=== PATIENT | male | born 1960 | race Caucasian/White ===

== ENCOUNTER 2021-03-24 06:58 | Emergency (ER) | payer OTHER, SELFPAY ==
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
[2021-03-24 07:01] VITALS: BP 154/86; RESP 20; TEMP 36.5; O2SAT 98
[2021-03-24 07:08] VITALS: BP 154/86; RESP 20; TEMP 36.5; O2SAT 98
[2021-03-24 08:19] VITALS: BP 139/82; PULSE 70; RESP 20; O2SAT 98
[2021-03-24] MEDS: KETOROLAC 30 MG/ML VIAL (*BKC) IV PUSH (08:19)
[2021-03-24] MEDS: MORPHINE SULFATE (*CRX) 4 MG/ML INJ IV PUSH (08:19)
[2021-03-24 09:46] VITALS: BP 137/85; PULSE 70; RESP 20; O2SAT 100
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
[2021-03-24 10:08] VITALS: BP 136/85; PULSE 66; RESP 20; O2SAT 98
== END 2021-03-24 10:11 | disposition home or self-care (01) ==
PROVIDERS: Emergency Provider Emergency Medicine; PCP Family Medicine
DX: S06.0X0A Concussion without loss of consciousness, initial encounter (principal); S16.1XXA Strain of muscle, fascia and tendon at neck level, initial encounter; Z87.442 Personal history of urinary calculi; G47.33 Obstructive sleep apnea (adult) (pediatric); Z87.891 Personal history of nicotine dependence; V53.5XXA Driver of pick-up truck or van injured in collision with car, pick-up truck or van in traffic accident, initial encounter
CPT/HCPCS: 70450; 72125; 96374; 96375; 99284; J1885; J2270

== ENCOUNTER 2022-03-30 01:14 | Day surgery (SDC) | payer OTHER, SELFPAY ==
[2022-03-15 10:50] VITALS: BMI 30.2
--- NOTE | 2022-03-29 13:24 | WPDANESEPPF ---
Anes - Initial Pre Proc Eval Procedure: Operation Date: 03/30/22 07:30 Proposed Procedures p Screening Colonoscopy - Nelson Hardin MD <Nate Glynn DO - Last Filed: 03/29/22 13:25> Date/Time: 03/29/22 13:24 <Nate Glynn DO - Last Filed: 03/29/22 13:25> Surgeon: Nelson Hardin MD <Nate Glynn DO - Last Filed: 03/29/22 13:25> Pre Op Diagnosis: neoplasm screening <Nate Glynn DO - Last Filed: 03/29/22 13:25> Patient Data Age: 62 Gender: M Height: 1.75 m Weight: 93 kg <Nate Glynn DO - Last Filed: 03/29/22 13:25> Allergies Allergy/AdvReac Type Severity Reaction Status Date / Time No Known Allergies Allergy Verified 03/30/22 06:22 <Nate Glynn DO - Last Filed: 03/29/22 13:25> Home Medications Medication Instructions Recorded Confirmed Type lancets 30 gauge (OneTouch Delica #100 ea 12/13/21 03/30/22 Rx Lancets) blood sugar diagnostic (FreeStyle #100 ea 12/14/21 03/30/22 Rx Lite Strips) blood-glucose meter (FreeStyle #1 ea 12/14/21 03/30/22 Rx Lite Meter kit) metformin 500 mg tablet,extended 500 mg PO DAILY #90 tabs 02/14/22 03/30/22 Rx release 24 hr atorvastatin 40 mg tablet 40 mg PO QHS #90 tabs 02/15/22 03/30/22 Rx <Nate Glynn DO - Last Filed: 03/29/22 13:25> Patient hx anesthesia problems: none <Opal Bustamante CRNA - Last Filed: 03/30/22 06:42> Family hx anesthesia problems: none <Opal Bustamante CRNA - Last Filed: 03/30/22 06:42> Results Review: All pre-operative results and documents have been reviewed as part of the pre-operative evaluation. <Nate Glynn DO - Last Filed: 03/29/22 13:25> [facility] Past Medical History Medical History: Medical History (Updated 03/29/22 @ 15:09 by Nelson Hardin MD) Clostridioides difficile diarrhea (~12/2021) Diabetes mellitus Dyslipidemia Environmental allergies Kidney stone on right side 01/04/17 BRENDON (obstructive sleep apnea) Radius fracture Right, 1997 <Nate Glynn DO - Last Filed: 03/29/22 13:25> Surgical History Surgical History: Surgical History History of lithotripsy 11/2015 - left renal stones History of open reduction and internal fixation (ORIF) procedure (~1997) 1997 Right distal radius fracture History of tonsillectomy (~1964) <Nate Glynn DO - Last Filed: 03/29/22 13:25> Family History Family History: Family History Sibling Family history of lung cancer Father Hypertension Cancer Other Family history of throat cancer <Nate Glynn DO - Last Filed: 03/29/22 13:25> Social History Social History: Social History Smoking packs per day: 1 Smoking cigarettes per day: 20.0 Years smoked: 6 Smoking pack-years: 6.00 Smoking status: Former smoker Tobacco type: cigarettes Second hand tobacco smoke exposure: No Smoking end date: 09/16/83 Alcohol intake: current Drinks per week: 2 Alcohol use details: 2 beers consumed occasionally Substance use: never Substance use type: does not use Living arrangements: with family Spiritual care concerns: No <Nate Glynn DO - Last Filed: 03/29/22 13:25> Anes - Eval Final PreProcedure Day of Procedure 03/29/22 13:24 <Nate Glynn DO - Last Filed: 03/29/22 13:25> Patient weight: obese <Nate Glynn DO - Last Filed: 03/29/22 13:25> Heart: regular rate and rhythm <Nate Glynn DO - Last Filed: 03/29/22 13:25> Lungs: clear to auscultation <Nate Glynn DO - Last Filed: 03/29/22 13:25> Airway: Mallampati scale class II <Nate Glynn DO - Last Filed: 03/29/22 13:25> Neurological:
--- NOTE | 2022-03-29 15:08 | PM.HPGS ---
History of Present Illness History of Present Illness Consent: Risks, benefits, and alternatives have been discussed and questions answered. Patient agrees to proceed with procedure. Chief complaint: neoplasm screening Narrative: Macario Pierce is a 62 year old male Referred for colon cancer screening. His last colonoscopy was 10 years ago. Review of Systems Review of Systems: All systems reviewed & are unremarkable except as noted in HPI and below PMFSH Past Medical History Medical History Clostridioides difficile diarrhea (~12/2021) Diabetes mellitus Dyslipidemia Environmental allergies Kidney stone on right side 01/04/17 BRENDON (obstructive sleep apnea) Radius fracture Right, 1997 Surgical History Surgical History History of lithotripsy 11/2015 - left renal stones History of open reduction and internal fixation (ORIF) procedure (~1997) 1997 Right distal radius fracture History of tonsillectomy (~1964) Family History Family History Sibling Family history of lung cancer Father Hypertension Cancer Other Family history of throat cancer Social History Social History Smoking packs per day: 1 Smoking cigarettes per day: 20.0 Years smoked: 6 Smoking pack-years: 6.00 Smoking status: Former smoker Tobacco type: cigarettes Second hand tobacco smoke exposure: No Smoking end date: 09/16/83 Alcohol intake: current Drinks per week: 2 Alcohol use details: 2 beers consumed occasionally Substance use: never Substance use type: does not use Living arrangements: with family Spiritual care concerns: No Meds Home Medications and Allergies Home Medications Medication Instructions Recorded Confirmed Type lancets 30 gauge (OneTouch Delica #100 ea 12/13/21 03/30/22 Rx Lancets) blood sugar diagnostic (FreeStyle #100 ea 12/14/21 03/30/22 Rx Lite Strips) blood-glucose meter (FreeStyle #1 ea 12/14/21 03/30/22 Rx Lite Meter kit) metformin 500 mg tablet,extended 500 mg PO DAILY #90 tabs 02/14/22 03/30/22 Rx release 24 hr atorvastatin 40 mg tablet 40 mg PO QHS #90 tabs 02/15/22 03/30/22 Rx Allergies Allergy/AdvReac Type Severity Reaction Status Date / Time No Known Allergies Allergy Verified 03/30/22 06:22 Exam Resp: Auscultation: clear to auscultation bilaterally Cardio: Rate: regular rate Rhythm: regular rhythm GI: GI Palp: Yes Soft to palpation and No Tenderness to palpation present (GI) Assessment and Plan Assessment and plan (1) Colon cancer screening: Code(s): Z12.11 - Encounter for screening for malignant neoplasm of colon Status: Acute Assessment and Plan: Colonoscopy with possible biopsy or polypectomy or cautery or injection of substances.
[2022-03-30 06:24] VITALS: BP 131/82; PULSE 70; RESP 16; TEMP 35.9; O2SAT 99; BMI 29.7
[2022-03-30] MEDS: LACTATED RINGERS 1,000 ML 150 ML IV CONT (06:33)
[2022-03-30 06:36] LABS: Glucose Point of Care 108 mg/dl (65-105)
[2022-03-30] MEDS: SIMETHICONE ORAL SUSPENSION 20 MG/0.3 ML 30 ML BOTTLE 0.6 ML IRRIGATION (07:33)
[2022-03-30 07:45] VITALS: BP 110/70; PULSE 79; RESP 21; O2SAT 97
[2022-03-30 07:55] VITALS: BP 117/82; PULSE 67; RESP 20; O2SAT 98
[2022-03-30 08:05] VITALS: BP 129/91; PULSE 72; RESP 23; O2SAT 99
== END 2022-03-30 08:12 | disposition home or self-care (01) ==
PROVIDERS: PCP Family Medicine; Visit Provider Internal Medicine Gastroenterology
PROC: 0DJD8ZZ Inspection of Lower Intestinal Tract, Via Natural or Artificial Opening Endoscopic (ICD-10-PCS; CPT 45378; principal; 2022-03-30 07:30)
DX: Z12.11 Encounter for screening for malignant neoplasm of colon (principal); D12.8 Benign neoplasm of rectum; E11.9 Type 2 diabetes mellitus without complications; E78.5 Hyperlipidemia, unspecified; G47.33 Obstructive sleep apnea (adult) (pediatric); Z87.891 Personal history of nicotine dependence; Z79.84 Long term (current) use of oral hypoglycemic drugs; E66.9 Obesity, unspecified; Z68.29 Body mass index [BMI] 29.0-29.9, adult
CPT/HCPCS: 45380; 82948; 88305; J2704; J7120

== ENCOUNTER 2022-07-12 13:00 | Outpatient (RCR) | payer OTHER, SELFPAY ==
[2022-06-28 13:15] VITALS: BMI 30.4
[2022-06-28 14:58] VITALS: BMI 30.4
== END 2022-09-24 10:18 | disposition home or self-care (01) ==
LOC: ANHDMC 13:00
PROVIDERS: PCP Family Medicine; Visit Provider Family Medicine
DX: E11.9 Type 2 diabetes mellitus without complications (principal); Z71.3 Dietary counseling and surveillance; Z71.89 Other specified counseling
CPT/HCPCS: 97802; G0108

== ENCOUNTER 2022-08-06 15:59 | Outpatient (CLI) | payer OTHER, SELFPAY ==
[2022-08-06 18:53] LABS: Alanine Aminotransferase 18 U/L (6-50); Albumin Level 4.6 g/dL (3.5-5.1); Alkaline Phosphatase 61 U/L (38-126); Anion Gap 6 mmol/L (8-16); Aspartate Amino Transferase 44 U/L (17-59); Bilirubin,Total 0.9 mg/dL (0.2-1.3); Blood Urea Nitrogen 21 mg/dL (9-20); Carbon Dioxide 26 mmol/L (22-30); Chloride 105 mmol/L (98-107); Estimated Glomerular Filt Rate > 60; Glucose 90 mg/dL (65-110); Potassium 4.3 mmol/L (3.4-5.0); Sodium 137 mmol/L (137-145)
[2022-08-06 19:12] LABS: Hemoglobin A1C 6.1 % (<5.7)
== END 2022-08-06 16:00 | disposition home or self-care (01) ==
LOC: ANHGOSHLAB 16:01
PROVIDERS: PCP Family Medicine; Visit Provider Family Medicine
DX: E78.5 Hyperlipidemia, unspecified (principal); E11.9 Type 2 diabetes mellitus without complications
CPT/HCPCS: 36415; 80053; 83036

== ENCOUNTER 2024-02-07 08:54 | Outpatient (CLI) | payer OTHER, SELFPAY ==
[2024-02-07 13:23] LABS: Basophils Percent Auto 0.6 % (0.2-1.2); Eosinophils Absolute Auto 0.2 K/mm3 (0-0.3); Eosinophils Percent Auto 3.7 % (0-4.4); Hemoglobin 15.4 g/dL (14.0-18.0); Immature Granulocyte Percent A 1.6 % (0-0.5); Lymphocytes Absolute Auto 2.87 K/mm3 (0.9-3.2); Lymphocytes Percent Auto 46.4 % (18.3-44.2); Mean Corpuscular HGB Conc 32.8 g/dl (32-36); Mean Corpuscular Hemoglobin 30.3 pg (26-34); Mean Corpuscular Volume 92.5 fl (80-100); Mean Platelet Volume 11.9 fl (7.4-10.4); Monocytes Absolute Auto 0.6 K/mm3 (0.1-0.6); Monocytes Percent Auto 9.4 % (2.6-8.5); Neutrophils Absolute Auto 2.4 K/mm3 (1.3-6.7); Neutrophils Percent Auto 38.3 % (45.5-73.1); Platelet Count Result 180 k/mm3 (150-375); Red Blood Count 5.08 M/mm3 (4.6-6.20); Red Cell Distribution Width 13.1 % (11.5-14.5); White Blood Count 6.2 K/mm3 (4.5-10.0)
[2024-02-07 14:59] LABS: Alanine Aminotransferase 16 U/L (6-50); Albumin Level 4.7 g/dL (3.5-5.1); Alkaline Phosphatase 64 U/L (38-126); Anion Gap 6 mmol/L (4-12); Aspartate Amino Transferase 65 U/L (17-59); Bilirubin,Total 1.1 mg/dL (0.2-1.3); Blood Urea Nitrogen 26 mg/dL (9-20); Calcium 9.5 mg/dL (8.4-10.2); Carbon Dioxide 27 mmol/L (22-30); Chloride 107 mmol/L (98-107); Cholesterol 159 mg/dL (0-200); Estimated Glomerular Filt Rate > 60; Glucose 118 mg/dL (65-110); HDL Direct 49 mg/dL; Potassium 5.3 mmol/L (3.4-5.0); Sodium 140 mmol/L (137-145); Triglycerides 144 mg/dL (<150)
[2024-02-07 15:10] LABS: LDL Cholesterol Direct 78 mg/dL
[2024-02-07 15:23] LABS: Hemoglobin A1C 5.9 % (<5.7)
[2024-02-07 15:30] LABS: Prostate Specific Antigen 2.8 ng/mL (< OR = 4.0); Thyroid Stimulating Hormone 0.458 uIU/mL (0.465-4.680)
[2024-02-07 16:26] LABS: Vitamin D 25 Hydroxy 58.5 ng/mL
== END 2024-02-07 08:55 | disposition home or self-care (01) ==
LOC: ANHGOSHLAB 08:55
PROVIDERS: PCP Family Medicine; Visit Provider Student in an Organized Health Care Education/Training Program
DX: E78.5 Hyperlipidemia, unspecified (principal); E55.9 Vitamin D deficiency, unspecified; Z12.5 Encounter for screening for malignant neoplasm of prostate; E11.9 Type 2 diabetes mellitus without complications
CPT/HCPCS: 36415; 80053; 80061; 82306; 83036; 84153; 84443; 85025; G0103